=== PATIENT | female | born 1950 | race Caucasian/White ===

== ENCOUNTER 2019-05-18 21:37 | Inpatient (IN) | payer MEDICARE, BC ==
[2019-05-19] MEDS ORDERED: REPATHA SY140 MG/1 M SC (01:08)
[2019-05-19] MEDS ORDERED: ISOSORBIDE MONO30 M1 PO (01:11)
[2019-05-19] MEDS ORDERED: GLIMEPIRIDE4 MG PO (01:13)
[2019-05-19] MEDS ORDERED: COUMADIN1 MG PO (01:14)
[2019-05-19] MEDS ORDERED: CARDURA2 MG PO (01:15)
[2019-05-19] MEDS ORDERED: COZAAR100 MG PO (01:17)
[2019-05-19] MEDS ORDERED: CATAPRES0.1 MG PO (01:19)
[2019-05-19] MEDS ORDERED: ASPIRIN EC81 M1 (01:20)
[2019-05-19] MEDS ORDERED: KLOR-CON M2020 MEQ PO (01:23)
[2019-05-19] MEDS ORDERED: LEVEMIR IN100 UNITS/ SC (01:24)
[2019-05-19] MEDS ORDERED: C-10001000 MG PO (01:26)
[2019-05-19] MEDS ORDERED: VITAMIN D250000 UNIT PO (01:27)
[2019-05-19] MEDS ORDERED: MAG-OX 400 MG400 MG PO (01:28)
[2019-05-19] MEDS ORDERED: COREG25 MG PO (01:30)
[2019-05-19] MEDS ORDERED: NITROSTAT0.4 MG SL (01:31)
[2019-05-19] MEDS ORDERED: MIRALAX17 GM PO (01:32)
[2019-05-19] MEDS ORDERED: SYSTANE NIGHTT3.5 GM (01:34)
[2019-05-19] MEDS ORDERED: COUMADIN5 MG PO (01:38)
[2019-05-19] MEDS ORDERED: LASIX80 MG PO (01:39)
[2019-05-19] MEDS ORDERED: SYNTHROID112 MCG PO (01:40)
[2019-05-19 02:58] VITALS: BP 188/81
[2019-05-19 07:29] LABS: BASOPHILS 0.4 % (0-2); EOSINOPHILS 1.4 % (0-7); HEMATOCRIT 41.7 % (36.0-48.0); HEMOGLOBIN 14.2 g/dL (12-16); IMMATURE GRANULOCYTES 0.1 % (0-5); LYMPHOCYTES 27.9 % (15-50); MCH 30.3 pg (26.0-34.0); MCHC 34.1 g/dL (31.0-37.0); MCV 88.9 fL (80.0-100.0); MONOCYTES 6.7 % (2-11); NEUTROPHILS 63.5 % (40-80); PLATELET COUNT 151 10x3/uL (130-400); RBC 4.69 10x6/uL (4.00-5.40); RDW 13.6 % (11.5-14.5); WBC 8.4 10x3/uL (4.8-10.8)
[2019-05-19 08:10] LABS: ALBUMIN 3.5 g/dL (3.4-5.0); ALKALINE PHOSPHATASE 85 U/L (46-116); ALT (SGPT) 18 U/L (10-68); BILIRUBIN - TOTAL 0.45 mg/dL (0.2-1.3); CALC OSMOLALITY 289 mosm/kg (275-300); CALCIUM 9.1 mg/dL (8.5-10.1); CHLORIDE - SERUM 107 mmol/L (98-107); CHOL - HDL RATIO 6.7 ratio (2.3-4.1); CHOLESTEROL, TOTAL 222 mg/dL (0-200); CREATININE - SERUM 0.9 mg/dL (0.6-1.3); GLUCOSE 141 mg/dL (74-106); HDL CHOLESTEROL 33 mg/dL (32-96); LDL CHOLESTEROL 136 mg/dL (0-100); LDL-HDL RATIO 4.1 ratio (1.5-3.5); POTASSIUM - SERUM 4.3 mmol/L (3.5-5.1); PROTEIN - SERUM 7.3 g/dL (6.4-8.2); SODIUM 144 mmol/L (136-145); THYROID STIMULATING HORMONE 1.78 uIU/mL (0.36-3.74); TRIGLYCERIDE 265 mg/dL (30-200); UREA NITROGEN 14 mg/dL (7-18); eGFR NON AFRICAN AMERICAN 66 mL/min (90-120)
[2019-05-19 09:56] VITALS: BP 150/90
[2019-05-19 10:09] VITALS: Wt 82.8 kg
[2019-05-19 10:37] LABS: INR 1.94 (0.85-1.17); PROTIME 21.5 SECONDS (11.6-15.0)
[2019-05-19 20:00] VITALS: BP 130/60
[2019-05-20 07:47] LABS: APPEARANCE CLEAR (CLEAR); BILIRUBIN NEGATIVE (NEGATIVE); COLOR YELLOW (YELLOW); GLUCOSE NEGATIVE (NEGATIVE); KETONE NEGATIVE (NEGATIVE); NITRITE NEGATIVE (NEGATIVE); PROTEIN NEGATIVE (NEGATIVE); SPECIFIC GRAVITY 1.015 (1.005-1.020); UROBILINOGEN NORMAL (NORMAL)
[2019-05-20 07:49] LABS: BACTERIA FEW /hpf (NONE SEEN); EPITHELIAL CELLS 0-5 /hpf (0-5); RED CELLS - URINE 0-5 /hpf (0-5)
[2019-05-20 08:11] LABS: RAPID PLASMA REAGIN Non Reactive (Non Reactive)
[2019-05-20 10:51] VITALS: BP 171/78
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
[2019-05-20 20:00] VITALS: BP 184/83
[2019-05-21 07:00] VITALS: BP 155/83
--- NOTE | 2019-05-21 12:29 | PN ---
PATIENT:ARTIE NICHOLS MEDICAL RECORD: [id number] LOCATION:YARELI Sim112 ADMISSION DATE: 05/18/19 PROGRESS NOTE DATE OF SERVICE: 05/20/2019 SUBJECTIVE: The patient complains of being sedated. She thinks that we have mixed up her medicine or that something has been done to her medicines. OBJECTIVE: The patient is clearly paranoid. She also is showing significantly reduced insight about her situation. She denies that she would seek to harm herself or others. I am going to change her Abilify to bedtime. Her long-term prognosis is guarded. TRANSINT:[id number] Voice Confirmation ID: [id number] DOCUMENT ID: [id number] SANDY MAGAÑA MD at 1229 CC: [id number] DICTATION DATE: 05/20/19 1232 JEWEL BEARING POLISHER: 05/20/19 1442 ADM IN [id number] [place] [address]
[2019-05-21 20:15] VITALS: BP 196/78
[2019-05-22 06:54] LABS: INR 1.85 (0.85-1.17); PROTIME 20.7 SECONDS (11.6-15.0)
[2019-05-22 07:00] VITALS: BP 165/75
--- NOTE | 2019-05-22 14:28 | PN ---
PATIENT:ARTIE NICHOLS MEDICAL RECORD: [id number] LOCATION:YARELI Sim112 ADMISSION DATE: 05/18/19 PROGRESS NOTE DATE OF SERVICE: 05/21/2019 SUBJECTIVE: The patient's case was discussed with staff. She has no new complaint. OBJECTIVE: The patient is impaired cognitively. She has made no more delusional statements. She has pretty limited insight about her situation. ASSESSMENT: No change in diagnoses. PLAN: The patient is going to be started on Celexa at a dose of 10 mg daily. Her long-term prognosis is guarded. TRANSINT:[id number] Voice Confirmation ID: [id number] DOCUMENT ID: [id number] SANDY MAGAÑA MD at 1428 CC: [id number] DICTATION DATE: 05/21/19 1240 METAL FINISH INSPECTOR: 05/21/19 1507 ADM IN [place] [address] [place] [address]
[2019-05-22 23:46] VITALS: BP 130/60
[2019-05-23 09:00] VITALS: BP 167/89
[2019-05-23 09:43] VITALS: BP 167/89
--- NOTE | 2019-05-23 15:33 | PN ---
PATIENT:ARTIE NICHOLS MEDICAL RECORD: [id number] LOCATION:YARELI Sim112 ADMISSION DATE: 05/18/19 PROGRESS NOTE DATE OF SERVICE: 05/22/2019 SUBJECTIVE: The patient's case was discussed with staff. She has no new complaint. OBJECTIVE: The patient has tolerated her initial dose of Celexa well. She has poor insight about her situation. ASSESSMENT: No change in diagnoses. PLAN: Current medicines and therapies have been reviewed and will be maintained. Long-term prognosis is guarded. TRANSINT:[id number] Voice Confirmation ID: [id number] DOCUMENT ID: [id number] SANDY MAGAÑA MD at 1533 CC: [id number] DICTATION DATE: 05/22/19 1519 PERFUME AND TOILET WATER MAKER: 05/22/19 1559 ADM IN [place] [id number] [place] [address]
[2019-05-23 20:31] VITALS: BP 181/78
[2019-05-24 08:38] VITALS: BP 170/69
--- NOTE | 2019-05-24 11:35 | PN ---
PATIENT:ARTIE NICHOLS MEDICAL RECORD: [id number] LOCATION:YARELI SimFelipe ADMISSION DATE: 05/18/19 PROGRESS NOTE DATE OF SERVICE: 05/23/2019 SUBJECTIVE: The patient's case was discussed with staff. She has no new complaint. OBJECTIVE: The patient is in good behavioral control with limited insight about her condition. She tolerates her medicines well. ASSESSMENT: No change in diagnoses. PLAN: The patient has had some issues with her blood pressure. She has not made any further mentions of the who is supposedly poisoning her. She has tolerated her initial dose of Celexa well and it is my intention to increase the dose of that medication tomorrow. TRANSINT:[id number] Voice Confirmation ID: [id number] DOCUMENT ID: [id number] SANDY MAGAÑA MD at 1135 CC: [id number] DICTATION DATE: 05/23/19 1608 VENEER TAPER: 05/23/19 1633 ADM IN [place] [address] [place] [address]
[2019-05-24 20:00] VITALS: BP 164/72
--- NOTE | 2019-05-25 10:08 | PN ---
PATIENT:ARTIE NICHOLS MEDICAL RECORD: [id number] LOCATION:YARELI Sim112 ADMISSION DATE: 05/18/19 PROGRESS NOTE DATE OF SERVICE: 05/24/2019 SUBJECTIVE: The patient's case was discussed with staff. She has no new complaint. OBJECTIVE: The patient is significantly better with regard to her mood. She is making no new psychotic statements, although when questioned about the circumstances that brought her here, she still clings to that as being absolutely valid. I do not argue with her about this. I did discuss the concerns about her having an early dementia and the importance of taking a cholinesterase inhibitor. She is reluctant to do so and is convinced that I am mistaken about the diagnosis. She does agree to get a second opinion after she leaves here, which I think is the best I can do at this point. I will; however, try to approach this subject with her again. TRANSINT:[id number] Voice Confirmation ID: [id number] DOCUMENT ID: [id number] SANDY MAGAÑA MD at 1008 CC: [id number] DICTATION DATE: 05/24/19 1243 PIGMENT PUSHER: 05/24/19 1250 ADM IN [facility] [address] [place] [address]
[2019-05-25 10:46] VITALS: BP 114/62
[2019-05-25 16:24] VITALS: BP 125/65
[2019-05-25 20:00] VITALS: BP 144/68
[2019-05-26 09:17] VITALS: BP 171/80
[2019-05-26 09:30] LABS: INR 1.57 (0.85-1.17); PROTIME 18.1 SECONDS (11.6-15.0)
[2019-05-26 12:04] VITALS: BP 134/69
[2019-05-26 20:41] VITALS: BP 171/73
[2019-05-27 08:15] VITALS: BP 121/80
[2019-05-27 09:20] VITALS: BP 131/80
--- NOTE | 2019-05-27 12:39 | PN ---
PATIENT:ARTIE NICHOLS MEDICAL RECORD: [id number] LOCATION:YARELI [facility]112 ADMISSION DATE: 05/18/19 PROGRESS NOTE DATE OF SERVICE: 05/25/2019 SUBJECTIVE: The patient's case was discussed with staff. She has no new complaint. OBJECTIVE: The patient is depressed, but not having any active thoughts of harming herself or others. She generally is tolerating her medicines well. ASSESSMENT: No change in diagnoses. PLAN: Current medicines have been reviewed. Brief supportive and educational interventions were made. TRANSINT:[id number] Voice Confirmation ID: [id number] DOCUMENT ID: [id number] SANDY MAGAÑA MD at 1239 CC: [id number] DICTATION DATE: 05/25/19 1020 PASTEURIZER: 05/25/19 1052 ADM IN [place] [id number] [place] [address]
--- NOTE | 2019-05-27 12:39 | PN ---
PATIENT:ARTIE NICHOLS MEDICAL RECORD: [id number] LOCATION:YARELI Sim112 ADMISSION DATE: 05/18/19 PROGRESS NOTE DATE OF SERVICE: 05/26/2019 SUBJECTIVE: The patient's case was discussed with staff. She has no new complaint. OBJECTIVE: The patient is tolerating her medicines reasonably well. I do have her taking an antipsychotic medicine at bedtime. I think that is helping with her perceptual changes. I have some new longitudinal information from one of her children indicating that she has always had symptoms that were consistent with a paranoid personality. It has never risen to the level of requiring inpatient care, but it seems to have worsened as she is aged. TRANSINT:[id number] Voice Confirmation ID: [id number] DOCUMENT ID: [id number] SANDY MAGAÑA MD at 1239 CC: [id number] DICTATION DATE: 05/26/19 180 RADIO PRODUCER: 05/26/19 1825 ADM IN [facility] [address] [place] [address]
[2019-05-27 20:36] VITALS: BP 207/89
[2019-05-28 08:00] VITALS: BP 158/72
--- NOTE | 2019-05-28 11:14 | PN ---
PATIENT:ARTIE NICHOLS MEDICAL RECORD: [id number] LOCATION:YARELI Sim112 ADMISSION DATE: 05/18/19 PROGRESS NOTE DATE OF SERVICE: 05/27/2019 SUBJECTIVE: The patient's case was discussed with staff. She has no new complaint. OBJECTIVE: The patient is in good behavioral control. She has poor insight about her condition. She continues to hold that her has been poisoning her, but I do not expect that to change. ASSESSMENT: No change in diagnoses. PLAN: Current medicines have been reviewed and will be maintained. Her long-term prognosis is guarded. TRANSINT:[id number] Voice Confirmation ID: [id number] DOCUMENT ID: [id number] SANDY MAGAÑA MD at 1114 CC: [id number] DICTATION DATE: 05/27/19 1245 EDUCATIONAL TECHNOLOGY COORDINATOR: 05/27/19 1252 ADM IN [place] [id number] [place] [address]
[2019-05-28 20:50] VITALS: BP 172/73
[2019-05-29 06:56] LABS: INR 1.74 (0.85-1.17); PROTIME 19.7 SECONDS (11.6-15.0)
[2019-05-29 08:26] VITALS: BP 126/72
--- NOTE | 2019-05-29 13:42 | PN ---
PATIENT:ARTIE NICHOLS MEDICAL RECORD: [id number] LOCATION:YARELI SimFelipe ADMISSION DATE: 05/18/19 PROGRESS NOTE DATE OF SERVICE: 05/28/2019 SUBJECTIVE: The patient's case was discussed with staff. She has no new complaint. OBJECTIVE: The patient denies intent to harm herself or others. She tolerates her medicines well. ASSESSMENT: No change in diagnoses. PLAN: Current medicines and therapies have been reviewed, both will be maintained. Long-term prognosis is guarded. TRANSINT:[id number] Voice Confirmation ID: [id number] DOCUMENT ID: [id number] SANDY MAGAÑA MD at 1342 CC: [id number] DICTATION DATE: 05/28/19 1118 LINK FABRIC MACHINE OPERATOR: 05/28/19 1159 ADM IN [place] [id number] [place] [address]
[2019-05-29 21:25] VITALS: BP 156/69
[2019-05-30 06:25] LABS: INR 1.74 (0.85-1.17); PROTIME 19.7 SECONDS (11.6-15.0)
[2019-05-30 08:00] VITALS: BP 158/64
--- NOTE | 2019-05-30 12:20 | PN ---
PATIENT:ARTIE NICHOLS MEDICAL RECORD: [id number] LOCATION:[facility] [address]112 ADMISSION DATE: 05/18/19 PROGRESS NOTE DATE OF SERVICE: 05/29/2019 SUBJECTIVE: The patient's case was discussed with staff. She has no new complaint. OBJECTIVE: The patient denies intent to harm herself or others. She is tolerating her medicines well. Eye contact is fair. ASSESSMENT: No change in diagnoses. PLAN: The patient is no longer reporting paranoid thoughts, although she is convinced that what she believes happened in the past, really did happen. TRANSINT:[id number] Voice Confirmation ID: [id number] DOCUMENT ID: [id number] SANDY MAGAÑA MD at 1220 CC: [id number] DICTATION DATE: 05/29/19 1518 BRICK GRADER: 05/29/19 1614 ADM IN [place] [id number] [place] [address]
[2019-05-30 21:02] VITALS: BP 146/68
[2019-05-31 08:30] VITALS: BP 144/64
--- NOTE | 2019-05-31 09:56 | PN ---
PATIENT:ARTIE NICHOLS MEDICAL RECORD: [id number] LOCATION:[facility] Sim112 ADMISSION DATE: 05/18/19 PROGRESS NOTE DATE OF SERVICE: 05/30/2019 SUBJECTIVE: The patient's case was discussed with staff. She has no new complaint. OBJECTIVE: The patient is in good behavioral control. She is tolerating her medicines well. The patient is not acutely dangerous to herself or others and currently is not showing paranoid or delusional symptoms. She does not want to go anywhere except back to her apartment. By that, I mean, she does not want to try to reconcile with her or family, and by that, I mean, she does not want to go to some sort of usp facility or assisted living facility. She is not appropriate for [facility] based on the mild level of her cognitive decline and her relative independence with all other activities. ASSESSMENT: No change in diagnoses. PLAN: The patient will be transitioned out of the hospital tomorrow at her request. She is going to be maintained on current medications. Her long-term prognosis is guarded. She is to have follow up PT, PTT and INR in 1 week. TRANSINT:[id number] Voice Confirmation ID: [id number] DOCUMENT ID: [id number] SANDY MAGAÑA MD at 0956 CC: [id number] DICTATION DATE: 05/30/19 1226 ADAPTIVE PHYSICAL EDUCATOR: 05/30/19 1242 ADM IN [place] [place] [address]
[2019-05-31] MEDS ORDERED: COUMADIN6 MG PO (10:05)
[2019-05-31] MEDS ORDERED: HYDRALAZINE HCL10 MG PO (10:07)
[2019-05-31] MEDS ORDERED: CARDURA4 MG PO (10:07)
[2019-05-31] MEDS ORDERED: ABILIFY2 MG PO (10:08)
[2019-05-31] MEDS ORDERED: CELEXA20 MG PO (10:08)
[2019-05-31] MEDS ORDERED: VITAMIN D5000 UNIT PO (10:11)
[2019-05-31 20:46] VITALS: BP 183/73
[2019-06-01 08:30] VITALS: BP 139/60
--- NOTE | 2019-06-01 15:02 | PN ---
PATIENT:ARTIE NICHOLS MEDICAL RECORD: [id number] LOCATION:YARELI Sim112 ADMISSION DATE: 05/18/19 PROGRESS NOTE DATE OF SERVICE: 05/31/2019 SUBJECTIVE: The patient's case was discussed with staff. She has no new complaint. OBJECTIVE: The patient is in good behavioral control with limited insight about her condition. She tolerates her medicines well. ASSESSMENT: No change in diagnoses. PLAN: Current medicines and therapies have been reviewed. There were some problems regarding her discharge and the arrangements today. It appears that she will be discharged tomorrow and I do not anticipated issue regarding that. I am not entirely pleased with the discharge setting, but for reasons documented elsewhere in the record, there seems to be little I can do to change that. I think her prognosis is fair if she will take her medicines and have the mental health follow up I recommended. TRANSINT:[id number] Voice Confirmation ID: [id number] DOCUMENT ID: [id number] SANDY MAGAÑA MD at 1502 CC: [id number] DICTATION DATE: 05/31/19 1526 COSMETICS SUPERVISOR: 05/31/19 1816 DIS IN 06/01/19 [facility] [address] [place] [address]
--- NOTE | 2019-06-02 16:06 | PN ---
PATIENT:ARTIE NICHOLS MEDICAL RECORD: [id number] LOCATION:YARELI Sim112 ADMISSION DATE: 05/18/19 PROGRESS NOTE DATE OF SERVICE: 06/01/2019 SUBJECTIVE: The patient's case was discussed with staff. She has no new complaint. OBJECTIVE: The patient denies intent to harm herself or others. She does tolerate her medicines well. Eye contact is fair. ASSESSMENT: No change in diagnoses. PLAN: Current medicines and therapies have been reviewed and will be maintained. Her long-term prognosis is guarded. TRANSINT:[id number] Voice Confirmation ID: [id number] DOCUMENT ID: [id number] SANDY MAGAÑA MD at 1606 CC: [id number] DICTATION DATE: 06/01/19 1531 MAIL OFFICER: 06/01/19 1704 DIS IN 06/01/19 [address] [address] [place] [address]
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
== END 2019-06-01 13:00 | disposition home or self-care (01) | DRG 885 ==
LOC: D.PSYCH 21:37
PROVIDERS: Family Medicine; ADMIT Psychiatry & Neurology Psychiatry; ATTEND Psychiatry & Neurology Psychiatry
DX: F32.3 Major depressive disorder, single episode, severe with psychotic features (principal); F01.51 Vascular dementia, unspecified severity, with behavioral disturbance; E78.5 Hyperlipidemia, unspecified; K59.09 Other constipation; E11.9 Type 2 diabetes mellitus without complications; M19.90 Unspecified osteoarthritis, unspecified site; I69.319 Unspecified symptoms and signs involving cognitive functions following cerebral infarction; E55.9 Vitamin D deficiency, unspecified; E03.9 Hypothyroidism, unspecified; I25.118 Atherosclerotic heart disease of native coronary artery with other forms of angina pectoris; I48.0 Paroxysmal atrial fibrillation